=== PATIENT | female | born 1955 | race Caucasian/White ===

== ENCOUNTER 2025-02-04 16:55 | Emergency (ER) | payer MEDICARE, OTHER, SELFPAY ==
--- OUTSIDE RECORDS SUMMARY | 2025-02-02 10:30 | XMS_ITS | Encounter Summary ---
Author Organization [facility] Address [address] [place] [address] Care Team Providers Care Dramatic Director Name Role Phone Desean Browning MD Primary Care Provider [phone] Jose Benavides MD Unavailable [phone] Encounter Details Date Type Department Care Team (Late st Contact Info) Description 02/02/2025 10:30 AM FIELD OPERATIONS MANAGER - 02/02/2025 11:59 PM [facility] Hospital Encounter [facility] [address] [place] [address] Desean Browning MD [address] [place] [address] Arrived Discharge Disposition: Home or Self Care (Routine Discharge) Social History Tobacco Use Types Packs/Day Years Used Date Smoking Tobacco: Never Smokeless Tobacco: Never Alcohol Use Standard Drinks/Week Comments Never 0 (1 standard drink = 0.6 oz pur e alcohol) Comments No Sex and Gender Information Value Date Recorded Sex Assigned at Not on file Legal Sex Female 5:03 PM CDT Gender Identity Not on file Sexual Orientation Not on file documented as of this encounter Medications at Time of Discharge ALPRAZolam (XANAX) 0.5 MG tablet Take 1 tablet (0.5 mg total) by mouth 3 (three) times daily as needed. 02/11/2023 anastrozole (ARIMIDEX) 1 MG tablet 01/03/2023 aspirin 325 MG tablet Take 1 tablet (325 mg total) by mouth daily. famotidine (PEPCID) 20 MG tablet Take 1 tablet (20 mg total) by mouth 2 (two) times daily. hydroxychloroquin e (PLAQUENIL) 200 MG tablet 1 tablet (200 mg total) 2 (two) times daily. 02/13/2023 leucovorin (WELLCOVORIN) 5 MG tablet Take 1 tablet (5 mg total) by mouth once a week. methotrexate (TREXALL) 2.5 MG tablet 02/19/2023 propranolol (INDERAL) 80 MG tablet 1 tablet (80 mg total) 2 (two) times daily. 02/10/2023 Vitamin D3 125 mcg Tab Take 1 tablet (125 mcg total) by mouth. Three times weekly per patient documented as of this encounter Plan of Treatment Not on file documented as of this encounter Procedures Procedure Name Priority Date/Time Associated Diagnosis Comments URINE BACTERIA CULTURE Routine 02/02/2025 10:44 AM FIELD OPERATIONS MANAGER Urinary symptom or sign URINALYSIS MICRO ONLY Routine 02/02/2025 10:44 AM FIELD OPERATIONS MANAGER URINALYSIS Routine 02/02/2025 10:44 AM FIELD OPERATIONS MANAGER Urinary symptom or sign documented in this encounter Results * URINALYSIS MICRO ONLY (02/02/2025 10:44 AM FIELD OPERATIONS MANAGER) WBC/HPF 5-10 0 - 5 /HPF 02/02/2025 11:27 AM FIELD OPERATIONS MANAGER [facility] RBC/HPF NONE SEEN 0 - 5 /HPF 02/02/2025 11:27 AM FIELD OPERATIONS MANAGER [facility] EPI/HPF NONE SEEN /HPF 02/02/2025 11:27 AM FIELD OPERATIONS MANAGER [facility] 02/02/2025 10:4 4 AM FIELD OPERATIONS MANAGER Desean Browning MD URINE ORDERABLES Final Result [facility] [address] [place] [address], [place] [phone] * (ABNORMAL) URINE BACTERIA CULTURE (02/02/2025 10:44 AM FIELD OPERATIONS MANAGER) SPEC DESCRIPTION URINE CLEAN CATCH 02/02/2025 10:44 AM FIELD OPERATIONS MANAGER [facility] SPECIAL REQUESTS NO SPECIAL REQUEST 02/02/2025 10:44 AM FIELD OPERATIONS MANAGER [facility] CULTURE RESULT 10,000-49,000 COL/ML CITROBACTER KOSERI NOTE: ORGANISM MAY DEVELOP RESISTANCE AFTER 3 TO 4 DAYS OF THERAPY WITH THIRD GENERATION CEPHALOSPORINS . TESTING OF REPEAT ISOLATES MAY BE WARRANTED. (A) 02/04/2025 7:35 AM FIELD OPERATIONS MANAGER [facility] URINE URINE SPECIMEN OBTAINED BY CLEAN CATCH PROCEDURE / Unknown 02/02/2025 10:44 AM FIELD OPERATIONS MANAGER 02/02/2025 10:49 AM FIELD OPERATIONS MANAGER Narrative Organism Antibiotic Method Susceptibility Citrobacter koseri CEFTRIAXONE DARSHAN (VITEK) <=1: Sensitive Citrobacter koseri CEFTAZIDIME DARSHAN (VITEK) <=1: Sensitive Citrobacter koseri CEFAZOLIN DARSHAN (VITEK) <=4: Sensitive Citrobacter koseri NITROFURANTOIN DARSHAN (VITEK) 32: Sensitive Citrobacter koseri GENTAMICIN DARSHAN (VITEK) <=1: Sensitive Citrobacter koseri LEVOFLOXACIN DARSHAN (VITEK) <=0.12: Sensitive Citrobacter koseri PIPERACILLIN/TAZOBACTAM DARSHAN (VITEK) <=4: Sensitive Citrobacter koseri TRIMETH-SULFAMETH. DARSHAN (VITEK) <=20: Sensitive Desean Browning MD MICROBIOLOGY - GENERAL ORDERABL ES Final Result [facility] [address] [place] [address], [place] [phone] [facility] [address] [place] [address], [place] [phone] * (ABNORMAL) URINALYSIS (02/02/2025 10:44 AM FIELD OPERATIONS MANAGER) COLOR (U) YELLOW 02/02/2025 11:27 AM FIELD OPERATIONS MANAGER [facility] TRANSPARENCY CLEAR 02/02/2025 11:27 [facility] SPECIFIC GRAVITY (U) 1.015 1.000 - 1.030 02/02/2025 11:27 [facility] U PH 6.0 5.0 - 9.0 02/02/2025 11:27 AM [facility] LEUKOCYTES (U) 1+(A) NEGATIVE 02/02/2025 11:27 [facility] NITRITES NEGATIVE NEGATIVE 02/02/2025 11:27 AM [facility] PROTEIN RANDOM (U) NEGATIVE NEGATIVE 02/02/2025 11:27 [facility] GLUCOSE (U) NEGATIVE NEGATIVE 02/02/2025 11:27 AM [facility] KETONES MG/DL (U) NEGATIVE NEGATIVE 02/02/2025 11:27 [facility] BILIRUBIN (U) NEGATIVE NEGATIVE 02/02/2025 11:27 [facility] BLOOD (U) NEGATIVE NEGATIVE 02/02/2025 11:27 [facility] URINE URINE SPECIMEN OBTAINED BY CLEAN CATCH PROCEDURE / Unknown 02/02/2025 10:44 AM FIELD OPERATIONS MANAGER us Desean Browning MD URINE ORDERABLES Final Result [facility] [address] [place] [address], [place] [phone] documented in this encounter Visit Diagnoses Diagnosis Urinary symptom or sign documented in this encounter Care Teams Dramatic Director Relationship Specialty Start Date End Date Desean Browning MD PCP - General HEMATOLOGY/ONCOLOGY 08/27/21 Jose Benavides MD [address] [address] Physician RHEUMATOLOGY 05/01/24 documented as of this encounter
--- NOTE | ~2025-02-04 | XR_ITS ---
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 Findings: Age-indeterminate fracture distal aspect of the proximal phalanx fifth digit, correlate clinically. No significant degenerative changes. Soft tissues unremarkable. Impression: Please see above Reviewed, dictated and finalized at location P. Y LEVEL MARKETING ASSISTANT Impression: Please see above
--- OUTSIDE RECORDS SUMMARY | 2025-02-04 17:05 | XMS_ITS | Clinical Summary ---
Author Organization [facility] Address [address] [place] [address] Care Team Providers Care Agronomy Specialist Name Role Phone Desean Browning MD Primary Care Provider Allergies Active Allergy Reactions Criticality Noted Date Comments Amoxicillin-Pot Clavulanate Diarrhea,Stomach upset Low 12/12/2023 Tramadol Nausea & Vomiting,Na usea only Low 04/11/2018 Medications cetirizine (ZyrTEC) 10 mg tablet take 1 tablet by oral route every day 0 0 5 Active aspirin 325 mg tablet take 1 tablet by oral route every day 0 0 6 Active naproxen (ALEVE) 220 mg tablet take 2 tablet by oral route every 12 hours as needed 0 0 6 Active Lactobacillus acidophilus (PROBIOTIC) 10 billion cell capsule take 1 capsule by oral route every day 0 0 6 Active fluticasone (FLONASE) 50 mcg/actuation nasal spray spray 2 spray by intranasal route every day in each nostril 1 spray 3 7 Active folic acid (FOLVITE) 1 mg tablet TAKE 1 TABLET BY MOUTH 1 TIME EVERY DAY. DO NOT TAKE ON DAYS YOU TAKE METHOTREXATE 30 tablet 7 Active hydroxychloroqu ine (PLAQUENIL) 200 mg tablet Take 1 tablet (200 mg total) by mouth 2 (two) times a day. 30 tablet 7 Active ergocalciferol (VITAMIN D) 50,000 unit capsule TAKE 1 CAPSULE BY MOUTH 1 TIME A WEEK 4 capsule 7 Active methotrexate 2.5 mg tablet Take 1 tablet (2.5 mg total) by mouth every 7 days 6 Active clonazePAM (KlonoPIN) 0.5 mg tablet Take 1 tablet (0.5 mg total) by mouth 2 (two) times a day 4 Active denosumab (Prolia) 60 mg/mL syringe 9 Active docusate sodium (Colace) 100 mg capsule Take 1 capsule twice a day by oral route. Active omeprazole (PriLOSEC) 40 mg capsule Take 1 capsule every day by oral route. Active propranoloL (INDERAL) 20 mg tablet Take 2 tablets (40 mg total) by mouth 2 (two) times a day 4 Active propranoloL (INDERAL) 80 mg tablet Take 1 tablet (80 mg total) by mouth 2 (two) times a day 1 Active cholecalciferol (VITAMIN D-3) 5,000 unit tablet Take 125 mcg by mouth 3 (three) times a week Active anastrozole (ARIMIDEX) 1 mg tablet Take 1 tablet (1 mg total) by mouth daily 9 Active vit A/C/E ac/ZnOx/cupric oxide (EYE VITAMIN AND MINERALS ORAL) Take 1 capsule by mouth daily Active leucovorin 5 mg tablet Take 1 tablet (5 mg total) by mouth once a week 6 Active benzonatate (TESSALON) 100 mg capsuleIndicati ons:Cough Take 1 capsule (100 mg total) by mouth 3 (three) times a day as needed for cough 42 capsule 4 Active albuterol HFA (PROVENTIL HFA,VENTOLIN HFA,PROAIR HFA) 90 mcg/actuation inhalerIndicati ons:Persistent cough Inhale 2 puffs every 6 (six) hours as needed for wheezing or shortness of breath 18 g 4 Active Active Problems Problem Noted Date Diagnosed Date 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 (06/11/2016): 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 Overview (06/11/2016): Factor V deficiency History of pulmonary embolism 02/26/2015 Overview (06/11/2016): History of pulmonary embolus Osteopenia 02/26/2015 Overview (06/11/2016): Osteopenia Immunizations Immunization Administration Dates Next Due Influenza, Quadrivalent, Spl it, Preservative Free, Intradermal 11/30/2015 Influenza, Trivalent, Split, Preservative Free, Intradermal 11/29/2014 Pneumococcal Conjugate PCV 13 01/03/2016 ZOSTER LIVE 04/28/2015 Surgical History Surgery Date Site/Laterality Comments TOTAL ABDOMINAL HYSTERECTOMY W/ BILATERAL SALPINGOOPHORECTOMY Hysterectomy, total abdominal, BSO CATARACT EXTRACTION Cataract extraction Medical History Medical History Date Comments Hx Other Medical Allergies, seas onal Hx Other Medical FRACUTRED RIGHT ANKLE Family History Medical History Relation Name Comments Kidney cancer Brother Cancer, kidney ; Prostate cancer Brother Cancer, pros denny; Rheum arthritis Mother Rheumatoid a rthritis; Other Other No family histo ry of RA/Felty's Syndrome; Cancer Sister Cancer, unknown ; Relation Name Status Comments Brother Mother Other Sister Social History Tobacco Use Types Packs/Day Years Used Date Smoking Tobacco: Never Alcohol Use Standard Drinks/Week Comments Yes 0 (1 standard drink = 0.6 oz pur e alcohol) Comments Unknown Sex and Gender Information Value Date Recorded Sex Assigned at Not on file Legal Sex Female 3:52 AM NETWORK SUPPORT ANALYST Gender Identity Not on file Sexual Orientation Not on file Last Filed Vital Signs Vital Sign Reading Time Taken Comments Blood Pressure 130/80 12/12/2023 11:29 AM CDT Pulse 74 12/12/2023 11:29 AM CDT Temperature 36.8 C (98.2 F) 12/12/2023 11:29 AM CDT Respiratory Rate 20 12/12/2023 11:2 9 AM CDT Oxygen Saturation 98% 12/12/2023 11: 29 AM CDT Inhaled Oxygen Concentration - - Weight 74.8 kg (164 lb 12.8 oz) 024 11:29 AM CDT Height 167.6 cm (5' 6) 12/12/2023 11:2 9 AM CDT Body Mass Index 26.6 12/12/2023 11:29 AM CDT Plan of Treatment Health Maintenance Due Date Last Done Comments Breast Cancer Screening-Mammogram 1955 Colon Cancer Screening-Colonoscopy 1955 Depression Screening 1955 Fall Risk Assessment 1955 Hepatitis C Screening 1955 Osteoporosis Screening-Bone Density Scan 1955 Hepatitis B Screening 07/31/1971 Well Visit 65+ 2018 Pneumococcal vaccine 65+ (3 of 3 - PCV20 or PCV21) 05/25/2022 05/25/2017, 01/03/2016 Zoster Vaccine (2 of 2) 02/17/2023 12/24/19 23, 04/28/2015, 04/04/2015 DTaP/Tdap/Td Vaccine (2 - Td or Tdap) 04/09/2024 04/09/2014 Influenza Vaccine (#1) 2024 0, 12/01/2018, 12/08/2017, Additional history exists Insurance MEDICARE Care Teams Agronomy Specialist Relationship Specialty Start Date End Date Desean Browning MD [address] [place] [address] PCP - General Hematology 12/12/23
--- OUTSIDE RECORDS SUMMARY | 2025-02-04 17:06 | XMS_ITS | Clinical Summary ---
Author Organization [facility] Address [address] [place] [address] Care Team Providers Care First Beater Name Role Phone Desean Browning MD Primary Care Provider [phone] Jose Benavides MD Unavailable [phone] Allergies No known active allergies Medications methotrexate (TREXALL) 2.5 MG tablet 02/19/2023 Active ALPRAZolam (XANAX) 0.5 MG tablet Take 1 tablet (0.5 mg total) by mouth 3 (three) times daily as needed. 02/11/2023 Active anastrozole (ARIMIDEX) 1 MG tablet 01/03/2023 Active hydroxychloroqu ine (PLAQUENIL) 200 MG tablet 1 tablet (200 mg total) 2 (two) times daily. 02/13/2023 Active propranolol (INDERAL) 80 MG tablet 1 tablet (80 mg total) 2 (two) times daily. 02/10/2023 Active aspirin 325 MG tablet Take 1 tablet (325 mg total) by mouth daily. Active famotidine (PEPCID) 20 MG tablet Take 1 tablet (20 mg total) by mouth 2 (two) times daily. Active Vitamin D3 125 mcg Tab Take 1 tablet (125 mcg total) by mouth. Three times weekly per patient Active leucovorin (WELLCOVORIN) 5 MG tablet Take 1 tablet (5 mg total) by mouth once a week. Active Encounters Date Type Department Care Team Description 02/02/2025 10:30 AM DIRECTOR SALES AND MARKETING - 02/02/2025 11:59 PM [facility] Hospital Encounter [facility] [address] [place] [address] Desean Browning MD Arrived Discharge Disposition: Home or Self Care (Routine Discharge) 02/02/2025 Orders Only [facility] [address] [place] [address] Desean Browning MD 02/02/2025 Travel from Last 3 Months Immunizations Immunization Administration Dates Next Due Fluzone High Dose - >Age 65 (Prefilled Syringe) 12/07/2022,12/11/2021,11/25/2020 Influenza (Generic) 11/20/2019,12/09/2016,2014 Influenza Adult (Generic) 12/01/2018,12/08/2017 Pneumococcal (Pneumovax 23) 05/25/2017 Shingrix 12/23/2022 Tdap (Generic) 04/09/2014 Zoster (Zostavax) [address] Unt/0.65Ml 04/04/2015 Social History Tobacco Use Types Packs/Day Years Used Date Smoking Tobacco: Never Smokeless Tobacco: Never Tobacco Cessation:Counseling Given: Not Answered Alcohol Use Standard Drinks/Week Comments Never 0 (1 standard drink = 0.6 oz pur e alcohol) Comments No Sex and Gender Information Value Date Recorded Sex Assigned at Not on file Legal Sex Female 5:03 PM CDT Gender Identity Not on file Sexual Orientation Not on file Last Filed Vital Signs Vital Sign Reading Time Taken Comments Blood Pressure 117/61 02/21/2023 6:40 PM DIRECTOR SALES AND MARKETING Pulse 71 02/21/2023 6:40 PM DIRECTOR SALES AND MARKETING Temperature 36.9 C (98.4 F) 02/21/2023 6:40 PM DIRECTOR SALES AND MARKETING Respiratory Rate 18 02/21/2023 6:40 PM DIRECTOR SALES AND MARKETING Oxygen Saturation 98% 02/21/2023 6:40 PM DIRECTOR SALES AND MARKETING Inhaled Oxygen Concentration - - Weight 74.8 kg (165 lb) 02/21/2023 6:40 PM DIRECTOR SALES AND MARKETING Height 172.7 cm (5' 8) 02/21/2023 6:40 PM DIRECTOR SALES AND MARKETING Body Mass Index 25.09 02/21/2023 6:40 PM DIRECTOR SALES AND MARKETING Plan of Treatment Health Maintenance Due Date Last Done Comments Colorectal Cancer Screening Colonoscopy (10 Years) 1953 Hepatitis C 07/31/1971 Mammogram Screening 1993 RSV Immunization or 60+ Years (1 - Risk 60-74 years 1-dose series) 2013 Annual Medicare Wellness Visit 2018 Dexa Scan (General) 2018 Pneumococcal Vaccine: 50+ Years (3 of 3 - PCV20 or PCV21) 05/25/2022 05/25/2017, 01/03/2016 Zoster Vaccines (3 of 3) 02/17/2023 023, 04/28/2015, 04/04/2015 DTaP, Tdap and Td Vaccines (2 - Td or Tdap) 04/09/2024 04/09/2014 COVID-19 Vaccine ( season) 2024 11/25/2022, 11/26/2021, 05/10/2021, Additional history exists Influenza Adult (#1) 2024 12/07/2022, 12/11/2021, 11/25/2020, Additional history exists Hepatitis A Vaccines Aged Out No long er eligible based on patient's age to complete this topic Meningococcal B Vaccine Aged Out No l onger eligible based on patient's age to complete this topic Meningococcal Vaccine Aged Out No natalie gary eligible based on patient's age to complete this topic RSV Immunizations Under 20 Months Aged Out No longer eligible based on patient's age to complete this topic Procedures Procedure Name Priority Date/Time Associated Diagnosis Comments URINE BACTERIA CULTURE Routine 02/02/2025 10:44 AM DIRECTOR SALES AND MARKETING Urinary symptom or sign URINALYSIS MICRO ONLY Routine 02/02/2025 10:44 AM DIRECTOR SALES AND MARKETING URINALYSIS Routine 02/02/2025 10:44 AM DIRECTOR SALES AND MARKETING Urinary symptom or sign from Last 3 Months Results * (ABNORMAL) URINE BACTERIA CULTURE (02/02/2025 10:44 AM DIRECTOR SALES AND MARKETING) SPEC DESCRIPTION URINE CLEAN CATCH 02/02/2025 10:44 AM DIRECTOR SALES AND MARKETING [facility] SPECIAL REQUESTS NO SPECIAL REQUEST 02/02/2025 10:44 AM DIRECTOR SALES AND MARKETING [facility] CULTURE RESULT 10,000-49,000 COL/ML CITROBACTER KOSERI NOTE: ORGANISM MAY DEVELOP RESISTANCE AFTER 3 TO 4 DAYS OF THERAPY WITH THIRD GENERATION CEPHALOSPORINS . TESTING OF REPEAT ISOLATES MAY BE WARRANTED. (A) 02/04/2025 7:35 AM DIRECTOR SALES AND MARKETING [facility] URINE URINE SPECIMEN OBTAINED BY CLEAN CATCH PROCEDURE / Unknown 02/02/2025 10:44 AM DIRECTOR SALES AND MARKETING 02/02/2025 10:49 AM DIRECTOR SALES AND MARKETING Narrative Organism Antibiotic Method Susceptibility Citrobacter koseri [...] MICROBIOLOGY - GENERAL ORDERABL ES Final Result [facility] [address] [place] [address], [place] [phone] [facility] [address] [place] [address], [place] [phone] * URINALYSIS MICRO ONLY (02/02/2025 10:44 AM DIRECTOR SALES AND MARKETING) WBC/HPF 5-10 0 - 5 /HPF 02/02/2025 11:27 AM DIRECTOR SALES AND MARKETING [facility] RBC/HPF NONE SEEN 0 - 5 /HPF 02/02/2025 11:27 AM DIRECTOR SALES AND MARKETING [facility] EPI/HPF NONE SEEN /HPF 02/02/2025 11:27 AM DIRECTOR SALES AND MARKETING [facility] 02/02/2025 10:4 4 AM DIRECTOR SALES AND MARKETING us Desean Browning MD URINE ORDERABLES Final Result [facility] [address] [place] [address], [place] [phone] * (ABNORMAL) URINALYSIS (02/02/2025 10:44 AM DIRECTOR SALES AND MARKETING) COLOR (U) YELLOW 02/02/2025 11:27 AM [facility] TRANSPARENCY CLEAR 02/02/2025 11:27 AM [facility] SPECIFIC GRAVITY (U) 1.015 1.000 - 1.030 02/02/2025 11:27 AM [facility] U PH 6.0 5.0 - 9.0 02/02/2025 11:27 AM [facility] LEUKOCYTES (U) 1+(A) NEGATIVE 02/02/2025 11:27 AM [facility] NITRITES NEGATIVE NEGATIVE 02/02/2025 11:27 AM [facility] PROTEIN RANDOM (U) NEGATIVE NEGATIVE 02/02/2025 11:27 AM [facility] GLUCOSE (U) NEGATIVE NEGATIVE 02/02/2025 11:27 AM [facility] KETONES MG/DL (U) NEGATIVE NEGATIVE 02/02/2025 11:27 AM [facility] BILIRUBIN (U) NEGATIVE NEGATIVE 02/02/2025 11:27 AM [facility] BLOOD (U) NEGATIVE NEGATIVE 02/02/2025 11:27 AM [facility] URINE URINE SPECIMEN OBTAINED BY CLEAN CATCH PROCEDURE / Unknown 02/02/2025 10:44 AM DIRECTOR SALES AND MARKETING us Desean Browning MD URINE ORDERABLES Final Result [facility] [address] [place] [address], from Last 3 Months Insurance [employer] MEDICARE Care Teams First Beater Relationship Specialty Start Date End Date Desean Browning MD PCP - General HEMATOLOGY/ONCOLOGY 08/27/21 Jose Benavides MD [address] [place] [address] Physician RHEUMATOLOGY 05/01/24
[2025-02-04 17:09] VITALS: BP 148/84; PULSE 84; RESP 20; TEMP 36.5; O2SAT 100
--- NOTE | 2025-02-04 17:16 | ED.LOWEXIN ---
HPI - Extremity Injury (Lower) General Chief Complaint: Extremity Problem,Nontraumatic Stated Complaint: fall Time Seen by Provider: 02/04/25 17:39 Source: patient and RN notes reviewed Mode of arrival: ambulatory Limitations: no limitations History of Present Illness HPI Narrative: 69-year-old female with history of essential tremors presents with concern for left pain. Reports she fell from her dining room and the living room steps with her left foot going on front of her, her toes rolling, she thinks her ankle rolled. She is currently reporting dorsal foot pain, pain in the 1st and 2nd digits. She has bruising to the 2nd digit. She denies decreased things, sensation, range of motion. MD complaint: foot injury Related Data Home Medications ?Medication ?Instructions ?Recorded ?Confirmed ?Last Taken ?Type anastrozole 1 mg tablet mg 02/04/25 Unknown History clonazepam 1 mg tablet mg 02/04/25 Unknown History hydroxychloroquine 200 mg tablet mg PO 02/04/25 Unknown History leucovorin calcium 5 mg tablet mg 02/04/25 Unknown History methotrexate sodium 2.5 mg tablet mg 02/04/25 Unknown History propranolol 20 mg tablet mg 02/04/25 Unknown History Allergies Allergy/AdvReac Type Severity Reaction Status Date / Time No Known Allergies Allergy Verified 02/04/25 17:10 Review of Systems Review of Systems: CONSTITUTIONAL: Denies malaise, chills, sweats, or fever. SKIN: Denies rash or itching, open skin, laceration, abrasion, redness, warmth MUSCULOSKELETAL: Reports left foot pain NEUROLOGIC: Denies numbness, weakness All systems reviewed & are unremarkable except as noted in HPI and below PMFSH Comments At time of signature, agree with nursing past medical, surgical, social and family history. There is no relevant family history pertinent to the presenting complaint Exam Narrative: GENERAL: Well-appearing, well-nourished, and in no acute distress. HEAD: Normocephalic, atraumatic. EYES: PERRLA, conjunctivae clear NECK: Supple. CHEST: Speaks in full sentences. No respiratory distress. HEART: Regular rate and rhythm. Normal and equal peripheral pulses. EXTREMITIES: Left ankle, foot, digits have grossly normal strength and sensation, grossly normal range of motion. Mild edema and ecchymosis noted to the 2nd digit. Normal sensation with sensitivity to light touch and pain. No point tenderness. No open wounds, no skin tenting, no devitalized tissue or atrophy, no trophic changes, no obvious deformity, alignment normal, nearby joints and structures intact. Distal pulses palpable and equal bilaterally, skin warm, dry, pink. Capillary refill less than 3 seconds. SKIN: Warm, dry, no rash. NEURO: Alert and oriented x3. PSYCH: Normal mood and affect Course Course Emergency Course: Patient is aware of diagnosis, understands and agrees to treatment plan. Anticipatory guidance given. Patient agrees to follow-up as directed and is aware of reasons to seek care at the emergency department. Portions of this record may have been created with voice recognition software Level of Care: [facility] Visit Vital Signs Vital signs: Vital Signs Temperature 97.7 F 02/04/25 17:09 Pulse Rate 84 02/04/25 17:09 Respiratory Rate 20 02/04/25 17:09 Blood Pressure 148/84 H 02/04/25 17:09 Pulse Oximetry 100 02/04/25 17:09 Oxygen Delivery Room Air 02/04/25 17:09 Temperature 97.7 F 02/04/25 17:09 Pulse Rate 84 02/04/25 17:09 Respiratory Rate 20 02/04/25 17:09 Blood Pressure 148/84 H 02/04/25 17:09 Pulse Oximetry 100 02/04/25 17:09 Oxygen Delivery Room Air 02/04/25 17:09 MDM Differential Diagnosis Differential Diagnosis: I evaluated this patient in the [facility]. History is obtained from patient who is an independent historian and physical exam was performed.? Available medical records were reviewed. ? Exam findings and relevant testing show no acute concerns or changes; patient is non-toxic appearing and is in no distress. ? Patients injury and/or pain is consistent with musculoskeletal etiology. No signs of neurological or vascular compromise on exam. Compartments and tissues are soft without signs of compartment syndrome. Pain is felt appropriate for further evaluation on an outpatient basis. Differential diagnosis and treatment plan were discussed with the patient. Patient agrees with discussion and after shared medical decision making agrees with plan of care. All questions were answered to the patient's satisfaction. Patient is appropriate for outpatient treatment and follow-up. Imaging Data My impression: Images reviewed, interpreted by radiologist, agree, see report. 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 Findings: Age-indeterminate fracture distal aspect of the proximal phalanx fifth digit, correlate clinically. No significant degenerative changes. Soft tissues unremarkable. Impression: Please see above Discharge Plan Discharge Clinical Impression: Foot sprain Patient Disposition: Home Condition: Stable Instructions: Foot Sprain (ED) Additional Instructions: Avoid activities that cause pain until the pain subsides. Ice to the area 20-30 minutes 4-6 times a day Elevate above heart Elastic wrap and orthopedic shoe as directed for comfort for the next 5-7 days Tylenol for lesser pain Ibuprofen regularly for the next 2-3 days for the inflammation Follow up with your primary care provider if the condition is not improving within 1 week. If the condition worsens with numbness, tingling, decrease sensation with weakness seek treatment in the emergency room immediately. Patient Language: Prydeinig Prescriptions: No Action anastrozole 1 mg tablet clonazepam 1 mg tablet methotrexate sodium 2.5 mg tablet leucovorin calcium 5 mg tablet hydroxychloroquine 200 mg tablet PO propranolol 20 mg tablet Follow-up/Referrals: UNKNOWN,DOCTOR [Primary Care Provider] Time of Disposition: 17:46
== END 2025-02-04 17:54 | disposition home or self-care (01) ==
PROVIDERS: Emergency Provider Nurse Practitioner
DX: S93.602A Unspecified sprain of left foot, initial encounter (principal); W19.XXXA Unspecified fall, initial encounter; G25.0 Essential tremor; M06.9 Rheumatoid arthritis, unspecified; F41.9 Anxiety disorder, unspecified; Z85.3 Personal history of malignant neoplasm of breast
CPT/HCPCS: 73630; 99203; G0463